=== PATIENT | female | born 2000 | race Caucasian/White ===

== ENCOUNTER → 2023-12-06 | Outpatient (CLI) | payer OTHER | LOC: M WUC 15:41 | PROVIDERS: ATTEND Physician Assistant | DX: M76.51 Patellar tendinitis, right knee (principal) ==

== ENCOUNTER → 2024-06-13 | Outpatient (REF) | payer OTHER | LOC: M LAB REF 10:49 | PROVIDERS: ATTEND Physician Assistant Medical | DX: N39.0 Urinary tract infection, site not specified (principal) ==

== ENCOUNTER 2024-06-24 06:37 | Day surgery (SDC) | payer OTHER ==
[~2024-06-24] VITALS: Ht 167.6 cm; Wt 76.9 kg
[2024-06-24] MEDS ORDERED: fentaNYL 100 MCG/2 ML INJECTION As Ordered ONE (07:01)
[2024-06-24] MEDS ORDERED: LIDOCAINE 2% 100MG/5ML SDV (FOR ANES.) As Ordered ONE (07:04)
[2024-06-24] MEDS ORDERED: ROCURONIUM BROMIDE 50MG/5ML VIAL As Ordered ONE (07:04)
[2024-06-24] MEDS ORDERED: propofoL 200 MG/20 ML VIAL As Ordered ONE (07:08)
[2024-06-24] MEDS ORDERED: ONDANSETRON 4MG 2ML VIAL As Ordered ONE (07:10)
[2024-06-24] MEDS ORDERED: ROPIvacaine 0.5% 30ML VIAL PN ONE (07:10)
[2024-06-24] MEDS ORDERED: fentaNYL 100 MCG/2 ML INJECTION IV PRN ×2 (07:10→11:40)
[2024-06-24] MEDS ORDERED: dexAMETHasone 10MG/1ML VIAL PRES.FREE PN ONE (07:10)
[2024-06-24] MEDS ORDERED: LIDOCAINE 1% SDV 5ML VIAL PN ONE (07:10)
[2024-06-24] MEDS ORDERED: ACETAMINOPHEN 1000MG 100ML IV BAG As Ordered ONE (07:10)
[2024-06-24] MEDS ORDERED: SUGAMMADEX SODIUM 500 MG/5 ML VIAL (BRIDION) As Ordered ONE (07:13)
[2024-06-24] MEDS: LR 1,000 ML IV SCH (07:22)
[2024-06-24] MEDS: MIDAZOLAM INJ 2MG/2ML VIAL IV PRN (07:32)
[2024-06-24] MEDS: ceFAZolin SOD 2 GM in IV 1 EA IV ONE (07:51)
[2024-06-24] MEDS ORDERED: propofoL 500 MG/50 ML VIAL As Ordered ONE (08:08)
[2024-06-24] MEDS: EPINEPHrine 1MG/ML INJ 30ML MD-VIAL As Ordered ONE (08:39)
[2024-06-24] MEDS: TRANEXAMIC ACID 100 MG/ML 10ML VIAL As Ordered ONE (08:39)
[2024-06-24] MEDS: TRANEXAMIC ACID 100 MG/ML 10ML VIAL IV ONE (09:30)
[2024-06-24] MEDS ORDERED: HYDROmorphone HCL 2MG/ML 1ML VIAL As Ordered ONE (09:30)
[2024-06-24] MEDS ORDERED: KETOROLAC 60MG 2ML VIAL As Ordered ONE (10:52)
[2024-06-24] MEDS ORDERED: LR 1,000 ML IV SCH (11:40)
[2024-06-24] MEDS ORDERED: HYDROMORPHONE HCL 0.5 MG/ 0.5 ML SYRINGE IV PRN (11:40)
[2024-06-24] MEDS ORDERED: oxyCODONE 5MG TAB PO PRN (11:40)
[2024-06-24] MEDS: ONDANSETRON 4MG 2ML VIAL IV PRN (12:10)
[2024-06-24 14:15] VITALS: BP 129/78; TEMP 97.7; O2SAT 98
== END 2024-06-24 14:20 | disposition home or self-care (01) ==
LOC: M SDC 06:37
PROVIDERS: ATTEND Orthopaedic Surgery
DX: M22.41 Chondromalacia patellae, right knee (principal); M23.631 Other spontaneous disruption of medial collateral ligament of right knee
CPT/HCPCS: 27427; 29870; 64454; 76000; 81025; C1713; C1762; C9290; J0131; J0171; J0665; J0690; J1100; J1171; J1885; J2250; J2405; J3010

== ENCOUNTER → 2025-06-28 | Outpatient (CLI) | payer OTHER | LOC: M PLAIMG 06:42 | PROVIDERS: ATTEND Physical Medicine & Rehabilitation | DX: M25.551 Pain in right hip (principal); M25.561 Pain in right knee ==